=== PATIENT | male | born 1980 | race Two or more races ===

== ENCOUNTER 2024-11-28 07:14 | Emergency (ER) | payer MEDICAID ==
[~2024-11-28] VITALS: Ht 180.3 cm; Wt 101.4 kg
[2024-11-28 07:30] VITALS: PULSE 14; RESP 14; TEMP 98; O2SAT 93
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
[2024-11-28] MEDS: TETANUS-DIPTH-ACEL PERTUSSIS 0.5ML SYR Tdap IM ONE (09:01)
[2024-11-28] MEDS: ONDANSETRON HCL 4 MG/2 ML VIAL IV ONE (09:04)
[2024-11-28] MEDS: MORPHINE SULFATE INJ 2 MG/ml SYRG IV ONE (09:05)
[2024-11-28] MEDS: LIDOCAINE 1% HCL (LOCAL ANESTH.) INJ 20ML MDV ID ONE (09:45)
[2024-11-28] MEDS ORDERED: CLIN1CAP70 PO (10:18)
[2024-11-28] MEDS ORDERED: AMOX500T3 PO (10:18)
[2024-11-28 10:20] VITALS: BP 119/86; PULSE 72; RESP 18; O2SAT 95
== END 2024-11-28 10:30 | disposition home or self-care (01) ==
LOC: ER 07:14
DX: S01.21XA Laceration without foreign body of nose, initial encounter (principal); M79.18 Myalgia, other site; V89.2XXA Person injured in unspecified motor-vehicle accident, traffic, initial encounter; Y93.89 Activity, other specified; Y92.410 Unspecified street and highway as the place of occurrence of the external cause; Y99.8 Other external cause status
CPT/HCPCS: 12013; 70450; 70486; 71101; 73120; 90471; 90715; 96374; 96375; 99285; J2003; J2270; J2405